=== PATIENT | male | born 1990 | race Caucasian/White ===

== ENCOUNTER 2018-03-24 18:43 | Emergency (ER) | payer SELFPAY ==
[~2018-03-24] VITALS: Ht 175.3 cm; Wt 62.1 kg
[2018-03-24 19:05] VITALS: BP 118/61
== END 2018-03-24 19:49 | disposition left against medical advice (07) ==
LOC: EME 18:43
DX: H57.11 Ocular pain, right eye (principal); Z53.21 Procedure and treatment not carried out due to patient leaving prior to being seen by health care provider